=== PATIENT | female | born 1945 | race Caucasian/White ===

== ENCOUNTER 2025-02-14 03:17 | Emergency (ER) | payer OTHER, SELFPAY ==
[2025-02-14 03:28] VITALS: BP 128/74; PULSE 96; RESP 18; TEMP 36; O2SAT 98
--- NOTE | 2025-02-14 03:42 | CRLHL7_ITS ---
For Patients: As a result of the Century Cures Act, medical imaging exams and procedure reports are released immediately into your electronic medical record. You may view this report before your referring provider. If you have questions, please contact your health care provider. INDICATION: Confusion. COMPARISON: None. TECHNIQUE: CT of the brain / head without intravenous contrast. Multiplanar axial, coronal, and sagittal reformats were reconstructed. FINDINGS: No intracranial hemorrhage. Mild age-related parenchymal volume loss. No acute or subacute cortically based infarct. Scattered white matter hypodensities may be related to chronic microvascular ischemia. No mass or mass effect. Normal ventricles. No skull fractures. No worrisome focal bone lesion. Hyperostosis frontalis internus. IMPRESSION: No acute intracranial findings. Please note that all CT scans at this facility use dose modulation, iterative reconstruction, and/or weight-based dosing when appropriate to reduce radiation dose to as low as reasonably achievable. Dictated by Lucille La MD @ 02/14/2025 4:24:27 AM (Electronically Signed)
--- NOTE | 2025-02-14 03:42 | CRLHL7_ITS ---
For Patients: As a result of the Cures Act, medical imaging exams and procedure reports are released immediately into your electronic medical record. You may view this report before your referring provider. If you have questions, please contact your health care provider. INDICATION: Hip pain COMPARISON: None. TECHNIQUE: AP pelvis one view. FINDINGS: No fracture. Normal hip joint alignment. Mild degenerative change. No destructive focal bone lesions. Soft tissues are normal. IMPRESSION: No pelvic or hip fracture. No acute findings. Dictated by Lucille La MD @ 02/14/2025 4:25:48 AM (Electronically Signed)
--- NOTE | 2025-02-14 03:49 | ED.WEAKNESS ---
HPI - Weakness General Date Seen: 02/14/25 Chief complaint: Hip Injury/Pain Stated complaint: confusion,hip pain Time Seen by Provider: 02/14/25 03:19 Source: patient, family, EMS and RN notes reviewed Mode of arrival: EMS Limitations: no limitations History of Present Illness HPI Narrative: Patient is a 79-year-old female presents here to the emergency room, as she was found by her laying on the ground, he admits to me this sometimes does happen, she does falls asleep and goes and lays on the floor. She was however crawling around before this, she normally is a little bit forgetful but the confusion seems worse today, she is unsure of the date, but otherwise able to talk to me knows that it is winter knows the year. Lives at home and denies alcohol use. She says she did not fall, she did hit her head she has no pain at all other than pain in her hips, which she says she has had for a while. She has not been to a doctor in years. He is on no chronic medications, she has no known allergies. While examining her she has a scar on her abdomen, she initially told me it was for a but her says that is where they took out a large cysts, along with her uterus. She also has a scar on her back mid mid thoracic region, Relieving factors: none Associated symptoms: denies other symptoms Related Data Home Medications ?Medication ?Instructions ?Recorded ?Confirmed No Known Home Medications 02/14/25 02/14/25 Allergies Allergy/AdvReac Type Severity Reaction Status Date / Time No Known Drug Allergies Allergy Verified 02/14/25 03:34 Review of Systems Status of ROS: Reports: 10 or more systems reviewed and unremarkable except as noted in History and below Exam Narrative: Exam Narrative: On examination in room 6 she is in no apparent distress she is alert to person, to place, but not to time. Pupils equal round reactive to light she tracks normally her TMs are normal her oropharynx is normal, her neck is supple full range of motion is elicited no tenderness to palpation over her neck or head. Cranial nerves 3-12 are normal her chest is good air entry bilaterally no wheezing crackles noted her heart sounds are normal no clicks murmurs or gallops her abdomen is soft there is no guarding no organomegaly scar from the previously mentioned operation are noted. No CVA tenderness is noted she moves her extremities hips through full range of motion, with a little bit of pain on full flexion and internal external rotation. But not overly. She has some scrapes noted on the top of her toes, which I suspect is from crawling around on the floor. And some redness around her knees and elbows also. Const: Vital Signs, click to edit/add: Vital Signs - 24 hr 02/14/25 03:28 Temperature 96.8 F L Pulse Rate [Pulse Oximeter] 96 Respiratory Rate 18 Blood Pressure [Ri ght Upper Arm] 128/74 Pulse Oximetry 98 Oxygen Delivery Me thod Room Air Course Course ED Course: Patient was able to walk, without no problems, I did want to get a urine test, but she became very teary and said she did wanting get 1, and she said she just wanted to go home, I think this is reasonable but I pointed out to her that her white count was elevated, I just want to rule out a UTI. Vital Signs Vital signs: Initial Vital Signs Temperature 96.8 F L 02/14/25 03:28 Temperature Source Temporal Artery Scan 02/14/25 03:28 Pulse Rate 96 02/14/25 03:28 Respiratory Rate 18 02/14/25 03:28 Blood Pressure 128/74 02/14/25 03:28 Blood Pressure Mean 92 02/14/25 03:28 Blood Pressure Position Semi-Fowlers 02/14/25 03:28 Pulse Oximetry 98 02/14/25 03:28 Oxygen Delivery Method Room Air 02/14/25 03:28 Vital Signs Temperature 96.8 F L 02/14/25 03:28 Pulse Rate 96 02/14/25 03:28 Respiratory Rate 18 02/14/25 03:28 Blood Pressure 128/74 02/14/25 03:28 Pulse Oximetry 98 02/14/25 03:28 Oxygen Delivery Method Room Air 02/14/25 03:28 Temperature 96.8 F L 02/14/25 03:28 Pulse Rate 96 02/14/25 03:28 Respiratory Rate 18 02/14/25 03:28 Blood Pressure 128/74 02/14/25 03:28 Pulse Oximetry 98 02/14/25 03:28 Oxygen Delivery Method Room Air 02/14/25 03:28 Medications Administered Medications: Discontinued Medications Generic Name Dose Route Start Last Admin Trade Name Freq PRN Reason Stop Dose Admin Sodium Chloride 1,000 mls @ 1,000 mls/hr 02/14/25 03:45 02/14/25 04:27 0.9 % Sodium Chloride 1000 Ml IV 02/14/25 04:44 1,000 mls/hr .Q1H PELON Administration MDM - Weakness MDM Narrative Medical decision making narrative: Discussed with the patient and her significant other, we will do a hip x-ray, pelvis, along with a head CT. I will do some blood tests and a urine test. Wonder if this is just a progressive memory impairment. Nurse already you did order influenza which is common for this type year which she has normal vital signs, that would make me think that this is ongoing. Medical Records Attestation: I reviewed the patient's medical records. Lab Data Attestation: I reviewed the patient's lab results. Labs: Lab Results 02/14/25 02/14/25 Range/Units 03:28 04:17 WBC 14.46 H (4.50-11.00) K/uL RBC 4.75 (4.00-5.20) m/uL Hgb 13.9 (12.0-16.0) gm/dL Hct 42.3 (33.0-51.0) % MCV 89 (80-100) fL MCH 29 (26-34) pg MCHC 33 (32-36) gm/dL RDW Coeff of Osiel 13.7 (11.5-15.5) % Plt Count 246 (140-440) K/uL Neut % (Auto) 85.8 H (42.0-72.0) % Lymph % (Auto) 8.4 L (20-44) % Faulkner % (Auto) 5.0 (0.0-11.0) % Eos % (Auto) 0.1 (0.0-7.0) % Baso % (Auto) 0.2 (0.0-3.0) % Neut # (Auto) 12.40 H (1.7-7.0) K/uL Lymph # (Auto) 1.20 (0.90-2.90) K/uL Faulkner # (Auto) 0.70 (0.00-0.90) K/UL Eos # (Auto) 0.00 (0.00-0.50) K/uL Baso # (Auto) 0.00 (0.00-0.30) K/uL Abs Immat Gran (auto) 0.10 (0.00-0.30) K/uL Imm/Tot Granulo (auto) 0.5 % Sodium 136 (135-149) mmol/L Potassium 3.5 L (3.6-5.1) mmol/L Chloride 104 (96-114) mmol/L Carbon Dioxide 23 (20-32) mmol/L Anion Gap 9 (7-15) mEq/L BUN 11 (7-30) mg/dL Creatinine 0.5 (0.5-1.5) mg/dL Estimated GFR 94 ml/min Glucose 209 H (60-115) mg/dL Calcium 8.8 (8.4-10.6) mg/dL Ethyl Alcohol < 0.01 (0.01-0.03) % SARS-CoV-2 (PCR) Negative SARS-CoV-2 (Negative) Influenza Type A (PCR) Negative PCR FLU A (Negative) Influenza Type B (PCR) Negative PCR FLU B (Negative) RSV (PCR) Negative PCR RSV (Negative) Imaging Data CT scan - head: Attestation: I have reviewed the pertinent imaging results. Radiologist's impression: atient: Katelyn Paul MR#: [id number] : 1945 Acct:[id number] Loc: ED Service Date: 02/14/[address]: Ordering Physician: Naren Johnson M.D. Date of Service: 02/14/25 Procedure(s): XR pelvis 1-2V Accession Number(s): [id number] cc: Naren Johnson M.D.~ For Patients: As a result of the Century Cures Act, medical imaging exams and procedure reports are released immediately into your electronic medical record. You may view this report before your referring provider. If you have questions, please contact your health care provider. INDICATION: Hip pain COMPARISON: None. TECHNIQUE: AP pelvis one view. FINDINGS: No fracture. Normal hip joint alignment. Mild degenerative change. No destructive focal bone lesions. Soft tissues are normal. IMPRESSION: No pelvic or hip fracture. No acute findings. Dictated by Lucille La MD @ 02/14/2025 4:25:48 AM Discharge Plan Discharge Clinical Impression: Bilateral hip joint arthritis, Memory deficit, Blood glucose elevated Patient Disposition: Home w/ Parent or Adult Condition: Stable Instructions: Altered Mental Status (ED) Additional Instructions: Home, rest, I recommend follow-up with primary care, he have some mild arthritis here of your hips, and this may benefit from some use of some Tylenol, he also seemed to have some very mild memory impairment, and they can be a good service for you for that. Your sugar level was also slightly elevated, and you will need follow-up for that. I would have liked to do an urine test but you declined. Activity Level: Light activity Discharge Diet: Regular Prescriptions: No Action No Known Home Medications Follow Up/Referrals: Provider,Not a Local [Primary Care Provider, Family Practice] Jessie Forde PA-C [Physician Early Childhood Education Coordinator, Family Practice] Jordy Stevens MD [Staff Physician, Internal Medicine] Stand Alone Forms: [employer] Info Instructions
[2025-02-14 04:26] LABS: PCR FLU A Negative PCR FLU A (Negative); PCR FLU B Negative PCR FLU B (Negative); PCR RSV Negative PCR RSV (Negative); SARS PCR* Negative SARS-CoV-2 (Negative)
[2025-02-14 04:32] LABS: Hematocrit* 42.3 % (33.0-51.0); Hemoglobin* 13.9 gm/dL (12.0-16.0); Immature Granulocytes Pct Auto 0.5 %; Mean Corpuscular HGB Conc 33 gm/dL (32-36); Mean Corpuscular Hemoglobin 29 pg (26-34); Mean Corpuscular Volume 89 fL (80-100); RDW Coefficient of Variation % 13.7 % (11.5-15.5); Red Blood Count* 4.75 m/uL (4.00-5.20); White Blood Count* 14.46 K/uL (4.50-11.00)
[2025-02-14 04:40] LABS: Immature Granulocytes Abs Auto 0.10 K/uL (0.00-0.30); Lymphocytes Absolute Auto 1.20 K/uL (0.90-2.90); Slide Review Reflex No
[2025-02-14 04:55] LABS: Chloride* 104 mmol/L (96-114); Sodium* 136 mmol/L (135-149)
[2025-02-14 04:56] LABS: Potassium* 3.5 mmol/L (3.6-5.1)
[2025-02-14 04:59] LABS: Anion Gap 9 mEq/L (7-15); Blood Urea Nitrogen* 11 mg/dL (7-30); Calcium* 8.8 mg/dL (8.4-10.6); Carbon Dioxide* 23 mmol/L (20-32); Creatinine* 0.5 mg/dL (0.5-1.5); Estimated Glomerular Filt Rate 94 ml/min; Glucose* 209 mg/dL (60-115)
[2025-02-14 05:04] LABS: Ethanol* < 0.01 % (0.01-0.03)
== END 2025-02-14 06:10 | disposition home or self-care (01) ==
PROVIDERS: Emergency Provider Family Medicine
DX: M13.852 Other specified arthritis, left hip (principal); M13.851 Other specified arthritis, right hip; R73.09 Other abnormal glucose; I69.911 Memory deficit following unspecified cerebrovascular disease
CPT/HCPCS: 36415; 70450; 72170; 80048; 81001; 82077; 85025; 87631; 99284; J7030